=== PATIENT | male | born 1945 ===

== ENCOUNTER 2018-09-09 13:04 | Outpatient (CLI) | payer OTHER ==
[~2018-09-09 13:04] MED LIST: ATENOLOL25 MG PO; FORTAMET1000 MG PO; GLIPIZIDE5 MG PO; PERCOCET PO
== END 2018-09-09 13:14 | disposition home or self-care (01) ==
LOC: RAD 13:04
DX: R05 Cough (principal)

== ENCOUNTER 2018-09-16 06:40 | Day surgery (SDC) | payer OTHER | END 2018-09-16 11:30 | disposition home or self-care (01) | LOC: CIR.AMB 06:40 | DX: N47.1 Phimosis (principal) ==